=== PATIENT | male | born 2000 | race Caucasian/White ===

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

== ENCOUNTER 2019-01-25 09:40 | Day surgery (SDC) | payer OTHER ==
[~2019-01-25 09:40] MED LIST: ACETAMINOPHEN 325 MG TABLET (FP) PO ONE; diphenhydrAMINE HCL 25 MG CAPSULE (FP) PO ONE; methylPREDNISolone NA SUCC 125 MG/2 ML VIAL IVPB ONE
[2019-01-25] MEDS ORDERED: OCRELIZUMAB IVPB ONE (10:00)
[2019-01-25] MEDS ORDERED: SODIUM CHLORIDE IVPB ONE (10:00)
[2019-01-25] MEDS ORDERED: methylPREDNISolone NA SUCC 125 MG/2 ML VIAL ONE (10:30)
[2019-01-25] MEDS ORDERED: ACETAMINOPHEN 325 MG TABLET (FP) ONE (10:32)
[2019-01-25 14:30] VITALS: TEMP 98.7
[2019-01-25 16:07] VITALS: BP 134/71; PULSE 70
== END 2019-01-25 16:07 | disposition home or self-care (01) ==
LOC: JINFUSION 09:40 → JASU-ENDO 09:40 → JINFUSION 09:50 → J7W 09:50 → JASU-ENDO 16:07
PROVIDERS: ATTEND Psychiatry & Neurology Psychiatry
DX: G35 Multiple sclerosis (principal)
CPT/HCPCS: 96367; 96375; 96413; 96415